=== PATIENT | female | born 1945 | race Caucasian/White ===

== ENCOUNTER → 2022-10-13 | Outpatient (CLI) | payer OTHER | END | disposition home or self-care (01) | LOC: RAH 11:39 | PROVIDERS: ATTEND Internal Medicine Critical Care Medicine | DX: I65.23 Occlusion and stenosis of bilateral carotid arteries (principal); R09.89 Other specified symptoms and signs involving the circulatory and respiratory systems | CPT/HCPCS: 93880 ==